=== PATIENT | female | born 1965 | race Caucasian/White ===

== ENCOUNTER 2016-09-29 22:53 | Emergency (ER) | payer BC ==
[~2016-09-29] VITALS: Ht 170.2 cm; Wt 65.0 kg
[2016-09-29 22:57] VITALS: TEMP 36.8; Ht 170.2 cm; Wt 65.0 kg
[2016-09-29] MEDS ORDERED: SODIUM CHLORIDE 0.9% 1000ML 1,000 ML IV STA ×2 (23:39)
[2016-09-29 23:51] LABS: BASO % 0.3 %; BASO ABS # 0.04 K/uL (0-0.2); COMPLETE YES; EOS % 0.9 %; HEMATOCRIT 40.2 % (37-47); IG% 0.3 %; LYMPH % 17.3 %; MEAN CELL VOLUME 89.3 fL (80-100); MEAN CORPUSCULAR HEMOGLOBIN 30.9 pg (25-34); MEAN CORPUSCULAR HGB CONC 34.6 g/dl (32-36); MEAN PLATELET VOLUME 10.4 fL (7.4-10.4); MONO % 8.5 %; NEUT % 72.7 %; PLATELET COUNT 260 K/uL (130-400); WHITE BLOOD COUNT 13.27 K/uL (4.8-10.8)
[2016-09-30 00:09] LABS: ALT/SGPT 34 U/L (12-78); AST/SGOT 17 U/L (15-37); BLOOD UREA NITROGEN 11 mg/dl (7-18); BUN/CREATININE RATIO 15.8 (10-20); CALCIUM 9.3 mg/dl (8.5-10.1); CARBON DIOXIDE 23 mmol/L (21-32); CHLORIDE 106 mmol/L (98-107); CREATININE 0.69 mg/dl (0.60-1.20); GLUCOSE 105 mg/dl (70-99); MAGNESIUM 2.1 mg/dl (1.8-2.4); POTASSIUM 3.6 mmol/L (3.5-5.1); SODIUM 141 mmol/L (136-145)
[2016-09-30] MEDS ORDERED: LISI-729 PO (00:12)
[2016-09-30] MEDS ORDERED: FLUT0.15 NAE (00:14)
[2016-09-30 00:19] LABS: ALKALINE PHOSPHATASE 97 U/L (45-117); CKMB/CK RATIO 1.4 (0-3.0)
[2016-09-30 00:58] LABS: URINE APPEARANCE CLEAR (CLEAR); URINE BILIRUBIN NEG (NEG); URINE COLOR YELLOW; URINE NITRITE NEG (NEG); URINE PH 7.5 (4.5-7.5); UROBILINOGEN NEG (NEG); ZZUR CULT IF INDIC CLEAN CATCH NO
[2016-09-30 01:03] LABS: MANUAL MICROSCOPIC REQUIRED? NO; REVIEW REQ? NO
[2016-09-30] MEDS ORDERED: LORAZEPAM 2 MG/ML 1 ML VIAL IV STA (02:05)
[2016-09-30] MEDS ORDERED: MECL1TAB42 PO (03:40)
[2016-09-30] MEDS ORDERED: DOXY100C2 PO (03:40)
[2016-09-30] MEDS ORDERED: DOXYCYCLINE HYCLATE 100 MG CAP PO ONE (03:45)
[2016-09-30] MEDS ORDERED: ONDANSETRON HOME PACK 4MG OD TAB PO ONE (03:45)
[2016-09-30 04:06] VITALS: BP 135/93; PULSE 95; O2SAT 99
--- NOTE | 2016-09-30 04:48 | EMERGENCY ROOM VISIT NOTE ---
History First contact with patient: 23:30 Chief Complaint: SYNCOPE Stated Complaint: BLACKED OUT, L HAND NUMBNESS, SHAKINESS Nursing Triage Summary: pt reports started feeling naseated with increased thirst and dizziness with standing , reports SUN since 1800 with ches t heaviness History of Present Illness The patient is a 51 year old female who presents to the Emergency Room with complaints of difficulty with ambulating, headache, left hand tingling, nausea, dizziness for the past 4 hours and is constant that is worse than any type of movement. Patient states the past few days she's been feeling kind of sick and rundown. Patient has a history of recurrent sinus issues and occasional dizziness spells but this feels much different than normal. Patient has had some intermittent chest pressure today also, nothing exertional constant. Patient states she's had intermittent chest pressure for quite some time. No known heart disease. Patient denies dyspnea, abdominal pain, vomiting, diarrhea , fever, chills, neck stiffness, sore throat, earache. She is tolerating by mouth fluids and food. Patient states the left hand tingling lasted for less than an hour and has now resolved. Review of Systems See HPI for pertinent positives & negatives. A total of 10 systems reviewed and were otherwise negative. Past Medical/Surgical History Hypertension, anxiety, allergies, vitamin D deficiency, cholecystectomy Social History Smoking Status: Never Smoker Smokeless Tobacco Use: No Drug Use: none Marital Status: Housing Status: lives with family Current/Historical Medications Scheduled Doxycycline Hyclate (Vibramycin), 100 MG PO BID Fluticasone Propionate (Nasal) (Flonase Allergy Relief), 1-2 SPRAYS MOIZ DIRECTED Lisinopril (Zestril), 5 MG PO DAILY Scheduled PRN Meclizine Hcl (Meclizine Hcl), 1 TAB PO TID PRN for Dizziness or Vertigo Allergies Coded Allergies: Amoxicillin (Verified Allergy, Intermediate, N/V/D, 09/30/16) Clavulanic Acid (Verified Allergy, Intermediate, N/V/D, 09/30/16) Physical Exam Vital Signs Date Time Temp Pulse Resp B/P Pulse Ox O2 Delivery O2 Flow Rate FiO2 09/30/16 04:06 95 18 135/93 99 Room Air 09/30/16 02:33 100 18 140/90 98 Room Air 09/30/16 01:03 94 18 147/93 98 Room Air 09/30/16 00:05 94 18 137/92 97 Room Air 09/29/16 23:10 101 09/29/16 22:57 36.8 106 18 165/91 99 Room Air Physical Exam VITALS: Vitals are noted on the nurse's note and reviewed by myself. Vital signs mildly tachycardic. GENERAL: Pleasant female following commands without difficulties, in no acute distress, nondiaphoretic, well-developed well-nourished. SKIN: The skin was without rashes, erythema, edema, or bruising. There is no tenting of the skin. Capillary reflex less than 2 seconds. HEAD: Normocephalic atraumatic. EARS: External auditory canals clear, tympanic membranes pearly flores without erythema or effusion bilaterally. EYES: Pupils equal round and reactive to light and accommodation. Conjunctivae without injection, sclerae without icterus. Extraocular movements intact. NOSE: Patent, turbinates without inflammation or discharge. Left maxillary sinus tenderness. MOUTH: Mucous membranes moist. Pharynx without erythema or exudate. Uvula midline. Airway patent. Tongue does not deviate. NECK: Supple without nuchal rigidity. No lymphadenopathy. No thyromegaly. Cervical spine is nontender. No JVD. HEART: Regular rate and rhythm without murmurs gallops or rubs. LUNGS: Clear to auscultation bilaterally without wheezes, rales or rhonchi. No dullness to percussion. No retractions or accessory muscle use. ABDOMEN: Positive bowel sounds x 4. Normal tympanic percussion. Soft, nontender, without masses or organomegaly. Monteiro sign negative. No guarding or rebound tenderness. MUSCULOSKELETAL: No muscle atrophy, erythema, or edema noted. NEURO: Patient was alert and oriented to person place and time. Normal sensation to light and sharp touch. No focal neurological deficits. Cranial nerves II-12 grossly intact. No pronator drift. Cerebellar exam intact. Medical Decision & Procedures Laboratory Results 09/29/16 23:18 Red Blood Count 4.50, Mean Corpuscular Volume 89.3, Mean Corpuscular Hemoglobin 30.9, Mean Corpuscular Hemoglobin Concent 34.6, Mean Platelet Volume 10.4, Neutrophils (%) (Auto) 72.7, Lymphocytes (%) (Auto) 17.3, Monocytes (%) (Auto) 8.5, Eosinophils (%) (Auto) 0.9, Basophils (%) (Auto) 0.3, Neutrophils # (Auto) 9.64, Lymphocytes # (Auto) 2.30, Monocytes # (Auto) 1.13, Eosinophils # (Auto) 0.12, Basophils # (Auto) 0.04 09/29/16 23:18 Test 09/29/16 23:18 09/29/16 23:45 09/30/16 04:05 White Blood Count 13.27 K/uL (4.8-10.8) Red Blood Count 4.50 M/uL (4.2-5.4) Hemoglobin 13.9 g/dL (12.0-16.0) Hematocrit 40.2 % (37-47) Mean Corpuscular Volume 89.3 fL (80-100) Mean Corpuscular Hemoglobin 30.9 pg (25-34) Mean Corpuscular Hemoglobin Concent 34.6 g/dl (32-36) Platelet Count 260 K/uL (130-400) Mean Platelet Volume 10.4 fL (7.4-10.4) Neutrophils (%) (Auto) 72.7 % Lymphocytes (%) (Auto) 17.3 % Monocytes (%) (Auto) 8.5 % Eosinophils (%) (Auto) 0.9 % Basophils (%) (Auto) 0.3 % Neutrophils # (Auto) 9.64 K/uL (1.4-6.5) Lymphocytes # (Auto) 2.30 K/uL (1.2-3.4) Monocytes # (Auto) 1.13 K/uL (0.11-0.59) Eosinophils # (Auto) 0.12 K/uL (0-0.5) Basophils # (Auto) 0.04 K/uL (0-0.2) RDW Standard Deviation 43.3 fL (36.4-46.3) RDW Coefficient of Variation 13.2 % (11.5-14.5) Immature Granulocyte % (Auto) 0.3 % Immature Granulocyte # (Auto) 0.04 K/uL (0.00-0.02) Anion Gap 12.0 mmol/L (3-11) Est Creatinine Clear Calc Drug Dose 91.7 ml/min Estimated GFR () 115.2 Estimated GFR (Non- 99.4 BUN/Creatinine Ratio 15.8 (10-20) Calcium Level 9.3 mg/dl (8.5-10.1) Magnesium Level 2.1 mg/dl (1.8-2.4) Total Bilirubin 0.2 mg/dl (0.2-1) Direct Bilirubin < 0.1 mg/dl (0-0.2) Aspartate Amino Transf (AST/SGOT) 17 U/L (15-37) Alanine Aminotransferase (ALT/SGPT) 34 U/L (12-78) Alkaline Phosphatase 97 U/L (45-117) Total Creatine Kinase 88 U/L (26-192) Creatine Kinase MB 1.2 ng/ml (0.5-3.6) Creatine Kinase MB Ratio 1.4 (0-3.0) Troponin I < 0.015 ng/ml (0-0.045) Total Protein 7.8 gm/dl (6.4-8.2) Albumin 4.2 gm/dl (3.4-5.0) Thyroid Stimulating Hormone (TSH) 1.740 uIu/ml (0.300-4.500) Urine Color YELLOW Urine Appearance CLEAR (CLEAR) Urine pH 7.5 (4.5-7.5) Urine Specific Coburn 1.000 (1.000-1.030) Urine Protein NEG (NEG) Urine Glucose (UA) NEG (NEG) Urine Ketones NEG (NEG) Urine Occult Blood NEG (NEG) Urine Nitrite NEG (NEG) Urine Bilirubin NEG (NEG) Urine Urobilinogen NEG (NEG) Urine Leukocyte Esterase NEG (NEG) Bedside Troponin I 0.000 ng/ml (0-0.045) Medications Administered Medications (Trade) Dose Ordered Sig/Benton Route Start Time Stop Time Status Last Admin Dose Admin Sodium Chloride 1,000 ml @ 999 mls/hr Q1H1M STAT IV 09/29/16 23:39 09/30/16 00:39 DC 09/29/16 23:39 999 MLS/HR Sodium Chloride (Nss 1000ml) 1,000 ml @ 125 mls/hr Q8H STAT IV 09/29/16 23:39 09/30/16 07:38 09/29/16 23:39 125 MLS/HR Lorazepam (Ativan Inj) 1 mg NOW STAT IV 09/30/16 02:05 09/30/16 02:06 DC 09/30/16 02:31 1 MG Doxycycline Hyclate (Vibramycin Cap) 100 mg ONE ONCE PO 09/30/16 03:45 09/30/16 03:46 DC 09/30/16 04:39 100 MG Ondansetron HCl (ZOFRAN ODT 4MG Home Pack) 1 homepack UD ONCE PO 09/30/16 03:45 09/30/16 03:46 DC 09/30/16 04:39 1 HOMEPACK ED Course Prior records/ancillary studies reviewed. Triage Nursing notes reviewed. The patient's history was concerning for dizziness and vertigo. Differential diagnosis: Etiologies such as benign positional vertigo, dehydration, hypovolemia, anemia, tumor, infection, hypoglycemia, electrolyte abnormalities, cardiac sources, intracerebral event, toxicologic, neurologic, as well as others were entertained. Physical examination: As above. No pathologic nystagmus. ER treatment provided: IV hydration with normal saline, 1000 ml. Meclizine, doxycycline On reassessment the patient felt well. Diagnostics interpretation by me: ECG: Normal sinus rhythm without ischemic change or evidence of dysrhythmia. Normal sinus, normal intervals, no acute ST-T wave changes. Impression normal sinus rhythm interpreted by myself The labs revealed a normal chemistry panel. 2 negative troponins 3 hours apart, mild leukocytosis Brain CT and MRI imaging concerning for mass or sinusitis.NO stroke per radiology It appears the patient has sinusitis who has been sick for the past few days and has a history of sinus disease with vertigo and chest discomfort. Patient had normal EKG and 2 negative 3 hours apart. No acute findings on CT imaging besides sinusitis and on MRI. Patient felt much better and requested to leave. She is able to tolerate fluids and ambulate without difficulties. Patient did have different symptoms and was unable to walk so further imaging was ordered. She also had some left hand tingling. She is advised to follow-up with her ENT doctor when she gets home back to [place] and [facility] doctor next few days. She is advised to return to the ER immediately for headache, fevers, localized weakness, tingling, worsening signs or symptoms or as needed. By the evaluation outlined above emergent etiologies such as hypoglycemia, electrolyte abnormalities, cardiac sources, intracerebral event, toxicologic, neurologic,as well as others were deemed relatively unlikely. The pt informed about the findings as listed above. All questions were answered and pleased with the treatment. Return instructions were outlined and the patient was discharged in stable condition. Outpatient prescription management: Meclizine, doxycycline Referral: The patient was referred back to their primary care physician for follow-up in 2 to 3 days for a recheck of the current condition. His reviewed with my attending Medical Decision As above Impression Primary Impression: Chest discomfort Additional Impressions: Dizziness Maxillary sinusitis Departure Information Dispostion Home / Self-Care Condition GOOD Prescriptions Meclizine Hcl (MECLIZINE HCL) 25 Mg Tab 1 TAB PO TID Y for Dizziness or Vertigo for 10 Days, #30 TAB Prov: Ruthie Martin .ROSALIE 09/30/16 Doxycycline Hyclate (VIBRAMYCIN) 100 Mg Cap 100 MG PO BID for 7 Days, #14 CAP Prov: Ruthie Martin .ROSALIE 09/30/16 Forms HOME CARE DOCUMENTATION FORM, IMPORTANT VISIT INFORMATION Patient Instructions Chest Pain - [facility], Sinusitis Acute, [facility], ED Vertigo Unspecified Additional Instructions DO NOT drive, drink alcohol, operate machinery, or perform dangerous activities today. You were given medications in the ER that can affect your ability to safely function or operate a vehicle. Meclizine 25 m tablet every 6-8 hours as needed for dizziness. No alcohol or driving on this medication. Zofran 4 m tablet every 6 hours as needed for nausea. Doxycycline 100mg: Take one pill twice daily for seven days for your infection. Take with food, but avoid dairy. Avoid prolonged sun exposure since this medication makes you temporarily more susceptible to sunburns. All antibiotics can cause diarrhea. If this occurs and you feel worse or it does not resolve in 1-2 days follow up with your doctor or return to the Emergency Department as this could be signs of serious underlying problems. Any medication can cause an allergic reaction, stop the pills immediately and return to the ER for rash, hives, breathing difficulties, or swelling. Acetaminophen(Tylenol) may be used for fever or pain. Use 1000mg every six hours as needed. Avoid using more than 3000mg in a 24 hour period. AND/OR Ibuprofen(Motrin, Advil) may be used for fever or pain. Use 600mg every six hours as needed. Take with food. Avoid using more than 2400mg in a 24 hour period. Do not use 2400mg per day for more than three consecutive days without physician direction. Prolonged inappropriate use can lead to stomach upset or ulcers. Controlling your fever with Tylenol and Ibuprofen as above will make you feel better. Rest and drink plenty of fluids. Avoid strenuous activity until your symptoms resolve and your breathing returns to normal. Continue current medications. Return to the ER for chest pain, difficulty breathing, persistent fevers, vomiting, worsening of your condition, or as needed. Follow-up with family care in 2-3 days. Problem Qualifiers Additional Impressions: Maxillary sinusitis Chronicity: acute Recurrence: recurrent Qualified Codes: J01.01 - Acute recurrent maxillary sinusitis
--- NOTE | 2016-09-30 06:39 | DIAGNOSTIC IMAGING REPORT ---
CT OF THE HEAD WITHOUT CONTRAST CLINICAL HISTORY: Dizzy. COMPARISON STUDY: No previous studies for comparison. CT DOSE: 537.48 mGy.cm TECHNIQUE: Helical axial images of the head were obtained without IV contrast. Automated exposure control was utilized for the study. FINDINGS: No acute intracranial hemorrhage, midline shift or mass effect is present. Brain volume is normal. Ventricular system is normal. The basilar cisterns are patent. There are no extra-axial collections. Pate-white differentiation is maintained. There are no findings to suggest acute dural sinus thrombosis or acute territorial infarct. There is no calvarial fracture. Visualized portions of the sinuses and mastoid air cells are clear. IMPRESSION: No acute intracranial findings. Electronically signed by: Jackson Waggoner M.D. 09/30/2016 6:37 AM Dictated Date/Time: 09/30/2016 6:34 AM
--- NOTE | 2016-09-30 08:13 | DIAGNOSTIC IMAGING REPORT ---
MRI OF THE BRAIN WITHOUT CONTRAST CLINICAL HISTORY: Dizziness. Left hand tingling. Difficulty walking. COMPARISON STUDY: Head CT T September 30, 2016. TECHNIQUE: Utilizing a 1.5 Stephie magnet and dedicated coil, multiplanar, multiecho imaging of the brain was performed without IV contrast. FINDINGS: There are no areas of restricted diffusion. No acute intracranial hemorrhage, midline shift or mass effect is present. Brain volume is normal. Ventricular system is normal. The basilar cisterns are patent. There are no extra-axial collections. Flow-voids for the major intracranial vessels are present. No intracranial masses identified on this unenhanced exam. There is mild mucosal thickening of the left maxillary sinus. Orbits are unremarkable. IMPRESSION: No acute intracranial findings. Electronically signed by: Jackson Waggoner M.D. 09/30/2016 8:12 AM Dictated Date/Time: 09/30/2016 8:09 AM
== END 2016-09-30 04:43 | disposition home or self-care (01) ==
LOC: C.EDB 22:55
DX: J01.01 Acute recurrent maxillary sinusitis (principal); R42 Dizziness and giddiness; R07.9 Chest pain, unspecified; I10 Essential (primary) hypertension; F41.9 Anxiety disorder, unspecified; E55.9 Vitamin D deficiency, unspecified; Z90.49 Acquired absence of other specified parts of digestive tract; Z79.899 Other long term (current) drug therapy; R20.2 Paresthesia of skin